=== PATIENT | female | born 1955 ===

== ENCOUNTER → 2020-08-17 | Outpatient (CLI) | payer MEDICARE, OTHER ==
--- NOTE | 2020-08-18 11:07 | BD ---
EXAMINATION TYPE: Axial Bone Density DATE OF EXAM: 08/17/2020 COMPARISON: NONE CLINICAL HISTORY: Other disorder of bone. Postmenopausal female. Height: 5 FT 4 IN Weight: 214 FRAX RISK QUESTIONS: Alcohol (3 or more units per day): NO Family History (Parent hip fracture): NO Glucocorticoids (More than 3mos): NO (Ex: prednisone, prednisolone, methylprednisolone, dexamethasone, and hydrocortisone). History of Fracture in Adulthood: NO Secondary Osteoporosis: 1. Type 1 Diabetes: NO 2. Hyperthyroidism: NO 3. Menopause before 45: NO 4. Malnutrition: NO 5. Chronic liver disease: ELEVATED ENZYMES Rheumatoid Arthritis: NO Current Tobacco Use: NO RISK FACTORS HISTORY OF: Hip Fracture (Right/Left): When: Spine Fracture: When: History of Wrist Fracture: When: Surgery to Spine/Hip(right/left)/Wrist (right/left): NO Family History of Osteoporosis: NO Active: YES Diet low in dairy products/other sources of calcium: NO Postmenopausal woman: AGE 50 Take estrogen and/or progesterone medications: NONE Lost more than 2 inches in height since high school: NO MEDICATIONS: Additional Medications: BLOOD PRESSURE MEDS, MULTI, VIT D Additional History: EXAM MEASUREMENTS: Bone mineral densitometry was performed using the [employer] System. Bone mineral density as measured about the Lumbar spine is: ----- L1-L4(G/cm2): 1.096 T Score Values are as follows: ----- L2: -1.0 ----- L3: -0.3 ----- L4: -0.6 ----- L1-L4: -0.7 BASELINE Bone mineral density about the R hip (g/cm2): 0.794 Bone mineral density about the L hip (g/cm2): 0.738 T Score values are as follows: -----R Neck: -1.8 -----L Neck: -2.2 -----R Total: -0.7 -----L Total: -1.1 BASELINE IMPRESSION: Osteopenia (T Score between -2.5 and -1). There is slightly increased risk of fracture and the patient may be considered for treatment. Re-Screen 2-5 years. NOTE: T-SCORE=SD OF THE YOUNG ADULT MEAN.
== END | disposition home or self-care (01) ==
LOC: RADMAMWWP 11:39
PROVIDERS: ATTEND Family Medicine
DX: Z12.31 Encounter for screening mammogram for malignant neoplasm of breast (principal); M85.89 Other specified disorders of bone density and structure, multiple sites
CPT/HCPCS: 77063; 77067; 77080